=== PATIENT | female | born 1980 | race Caucasian/White ===

== ENCOUNTER 2016-04-22 21:51 | Emergency (ER) | payer OTHER ==
[~2016-04-22] VITALS: Ht 149.9 cm; Wt 81.6 kg
[2016-04-22 21:53] VITALS: BP_SYST 146
[2016-04-22] MEDS ORDERED: MAG-AL HYDROX/SIMETH 30 ML UDC PO ONE (22:45)
[2016-04-22] MEDS ORDERED: LIDOCAINE VISCOUS 2%, 15 ML UDC MM ONE (22:45)
[2016-04-22] MEDS ORDERED: ONDANSETRON HCL 4 MG/2 ML VIAL IVP ONE (22:45)
[2016-04-22] MEDS ORDERED: BELLADONNA ALKALOIDS/PHENOBARB 5 ML UDC PO ONE (22:45)
[2016-04-22] MEDS ORDERED: NACL 0.9% 1,000 ML IV ONE (22:45)
[2016-04-22] MEDS ORDERED: LORazepam 2 MG/ML VIAL (FOR ER USE) IVP ONE ×2 (23:00→23:30)
[2016-04-22 23:08] LABS: CALCIUM 8.2 mg/dL (8.4-11.0); CREATININE 0.77 mg/dL (0.55-1.30); POTASSIUM 3.3 mmol/L (3.5-5.1)
[2016-04-22 23:11] LABS: BASOPHILS % (AUTO) 0.4 % (0.0-2.0); EOSINOPHILS # (AUTO) 0.3 K/uL (0.0-0.4); EOSINOPHILS % (AUTO) 3.5 % (0.0-4.0); HEMATOCRIT 33.5 % (36-48); HEMOGLOBIN 11.2 g/dL (12.0-16.0); LYMPHOCYTES # (AUTO) 4.1 K/uL (1.0-5.5); LYMPHOCYTES % (AUTO) 48.9 % (20.5-51.5); MEAN CORPUSCULAR HEMOGLOBIN 27 pg (27-31); MEAN CORPUSCULAR HGB CONC 33 % (32-36); MEAN CORPUSCULAR VOLUME 81 fL (79.0-98.0); MONOCYTES # (AUTO) 0.7 K/uL (0.0-1.0); MONOCYTES % (AUTO) 7.9 % (1.7-9.3); NEUTROPHILS # (AUTO) 3.4 K/uL (1.8-7.7); NEUTROPHILS % (AUTO) 39.3 % (40.0-70.0); PLATELET COUNT (AUTO) 306 K/uL (130-430); RED BLOOD CELL COUNT(AUTO) 4.13 MIL/uL (4.2-6.2); WHITE BLOOD COUNT (AUTO) 8.5 K/uL (4.8-10.8)
[2016-04-22 23:13] LABS: ALBUMIN 3.5 g/dL (3.4-4.8); TOTAL BILIRUBIN 0.1 mg/dL (0.0-1.0); TOTAL PROTEIN, SERUM 6.9 g/dL (6.4-8.3)
[2016-04-22 23:40] VITALS: BP_SYST 142
== END 2016-04-22 23:40 | disposition home or self-care (01) ==
LOC: SED 21:51
DX: K29.20 Alcoholic gastritis without bleeding (principal); F41.1 Generalized anxiety disorder
CPT/HCPCS: 36415; 80053; 85025; 93005; 96361; 96374; 96375; 99285; J2001; J2405; J7030; J2060

== ENCOUNTER 2017-03-13 08:24 | Emergency (ER) | payer OTHER ==
[~2017-03-13] VITALS: Ht 149.9 cm; Wt 86.2 kg
--- NOTE | 2017-03-13 08:32 | NUR ---
Patient to ER bed 7 to gown for evaluation. Side rails up. Report given to Joy BARBOZA.
[2017-03-13 08:33] VITALS: BP_SYST 138
--- NOTE | 2017-03-13 08:34 | NUR ---
Pt complains of having right flank pain that radiates up her back since yesterday. Pt states she feels nauseous but has not vomited. Pt states she had chill but is not sure if she had a fever. Pt denies burning/pain while urinating. No other injuries/complaints per patient or noted.
--- NOTE | 2017-03-13 08:35 | NUR ---
ER Dr. Alves at bedside examining patient.
[2017-03-13] MEDS ORDERED: NACL 0.9% 1,000 ML IV ONE (08:59)
[2017-03-13] MEDS ORDERED: ACETAMINOPHEN 500 MG TABLET PO ONE (09:00)
[2017-03-13] MEDS ORDERED: KETOROLAC TROMETHAMINE 30 MG VIAL IVP ONE (09:00)
[2017-03-13] MEDS ORDERED: cefTRIAXone 1 GM IVPB PREMIX 50 ML IV ONE (09:00)
[2017-03-13 09:08] LABS: BILIRUBIN,URINE NEGATIVE (NEGATIVE); CLARITY/URINE CLEAR (CLEAR); COLOR,URINE YELLOW (YELLOW); GLUCOSE,URINE NEGATIVE (NEGATIVE); KETONES,URINE NEGATIVE (NEGATIVE); LEUKOCYTE ESTERASE ,URINE NEGATIVE (NEGATIVE); NITRITE, URINE NEGATIVE (NEGATIVE); PH,URINE 5.5 (5.0-8.0); PROTEIN URINE NEGATIVE (NEGATIVE); UROBILINOGEN,URINE 0.2 (0.2-1.0)
--- NOTE | 2017-03-13 09:08 | NUR ---
Pt went to radiology in stable condition.
[2017-03-13 09:12] LABS: BLOOD, URINE TRACE (NEGATIVE)
--- NOTE | 2017-03-13 09:18 | NUR ---
Pt returned from radiology in stable condition.
[2017-03-13 09:22] LABS: BASOPHILS # (AUTO) 0.1 K/uL (0.0-0.2); BASOPHILS % (AUTO) 1.5 % (0.0-2.0); EOSINOPHILS # (AUTO) 0.2 K/uL (0.0-0.4); EOSINOPHILS % (AUTO) 2.9 % (0.0-4.0); HEMATOCRIT 37.8 % (36-48); HEMOGLOBIN 12.2 g/dL (12.0-16.0); LYMPHOCYTES # (AUTO) 2.8 K/uL (1.0-5.5); MEAN CORPUSCULAR HEMOGLOBIN 26 pg (27-31); MEAN CORPUSCULAR HGB CONC 32 % (32-36); MEAN CORPUSCULAR VOLUME 82 fL (79.0-98.0); MONOCYTES # (AUTO) 0.7 K/uL (0.0-1.0); MONOCYTES % (AUTO) 8.4 % (1.7-9.3); NEUTROPHILS % (AUTO) 51.2 % (40.0-70.0); PLATELET COUNT (AUTO) 387 K/uL (130-430); RED BLOOD CELL COUNT(AUTO) 4.63 MIL/uL (4.2-6.2); RED CELL DISTRIBUTION WIDTH 12.6 % (9.0-15.0); WHITE BLOOD COUNT (AUTO) 7.8 K/uL (4.8-10.8)
[2017-03-13 09:28] LABS: CALCIUM 8.9 mg/dL (8.4-11.0); CREATININE 0.48 mg/dL (0.55-1.30); POTASSIUM 3.9 mmol/L (3.5-5.1)
[2017-03-13 09:32] LABS: TOTAL BILIRUBIN 0.1 mg/dL (0.0-1.0)
[2017-03-13 09:36] LABS: BACTERIA,URINE None Seen /HPF (None Seen); WBC,URINE NONE SEEN /HPF (0-3)
[2017-03-13] MEDS ORDERED: LORazepam 2 MG/ML VIAL IVP ONE (09:45)
[2017-03-13] MEDS ORDERED: LORazepam 2 MG/ML VIAL (FOR ER USE) ONE (09:53)
--- NOTE | 2017-03-13 10:30 | NUR ---
Patient given written and verbal discharge instructions and verbalizes understanding. ER MD discussed with patient the results and treatment provided. Patient in stable condition. ID arm band removed. IV catheter removed intact and dressing applied, no active bleeding. Rx of Ativan, Motrin given. Patient educated on pain management and to follow up with PMD. Pain Scale 2/10. Opportunity for questions provided and answered.
== END 2017-03-13 10:30 | disposition home or self-care (01) ==
LOC: SED 08:24
DX: M54.6 Pain in thoracic spine (principal)
CPT/HCPCS: 36415; 71045; 74018; 80053; 81000; 81025; 83690; 85025; 96365; 96375; 99285; J0696; J1885; J2060; J7030

== ENCOUNTER 2018-02-08 13:46 | Emergency (ER) | payer OTHER ==
[~2018-02-08] VITALS: Ht 149.9 cm; Wt 88.5 kg
[2018-02-08 13:56] VITALS: BP_SYST 115
[2018-02-08 14:53] LABS: BILIRUBIN,URINE NEGATIVE (NEGATIVE); BLOOD, URINE NEGATIVE (NEGATIVE); CLARITY/URINE CLEAR (CLEAR); COLOR,URINE YELLOW (YELLOW); GLUCOSE,URINE NEGATIVE (NEGATIVE); KETONES,URINE NEGATIVE (NEGATIVE); LEUKOCYTE ESTERASE ,URINE NEGATIVE (NEGATIVE); NITRITE, URINE NEGATIVE (NEGATIVE); PH,URINE 6.5 (5.0-8.0); PROTEIN URINE NEGATIVE (NEGATIVE); UROBILINOGEN,URINE 0.2 (0.2-1.0)
[2018-02-08] MEDS ORDERED: ACETAMINOPHEN 325 MG TABLET PO ONE (15:30)
[2018-02-08 15:36] VITALS: BP_SYST 135
== END 2018-02-08 15:32 | disposition home or self-care (01) ==
LOC: SED 13:46
DX: S39.012A Strain of muscle, fascia and tendon of lower back, initial encounter (principal); X50.0XXA Overexertion from strenuous movement or load, initial encounter; Y93.89 Activity, other specified; Y92.69 Other specified industrial and construction area as the place of occurrence of the external cause; Y99.8 Other external cause status
CPT/HCPCS: 81003; 81025; 99283

== ENCOUNTER 2018-05-14 12:58 | Emergency (ER) | payer OTHER ==
[~2018-05-14] VITALS: Ht 152.4 cm; Wt 86.2 kg
[2018-05-14 13:04] VITALS: BP_SYST 138
[2018-05-14] MEDS ORDERED: KETOROLAC TROMETHAMINE 60 MG/2 ML VIAL IM ONE (13:30)
[2018-05-14 14:23] LABS: BASOPHILS # (AUTO) 0.1 K/uL (0.0-0.2); BASOPHILS % (AUTO) 0.7 % (0.0-2.0); EOSINOPHILS # (AUTO) 0.2 K/uL (0.0-0.4); EOSINOPHILS % (AUTO) 2.5 % (0.0-4.0); HEMATOCRIT 35.9 % (36-48); HEMOGLOBIN 11.6 g/dL (12.0-16.0); LYMPHOCYTES # (AUTO) 2.9 K/uL (1.0-5.5); LYMPHOCYTES % (AUTO) 35.1 % (20.5-51.5); MEAN CORPUSCULAR HEMOGLOBIN 26 pg (27-31); MEAN CORPUSCULAR HGB CONC 32 % (32-36); MEAN CORPUSCULAR VOLUME 81 fL (79.0-98.0); MONOCYTES # (AUTO) 0.6 K/uL (0.0-1.0); MONOCYTES % (AUTO) 7.2 % (1.7-9.3); NEUTROPHILS # (AUTO) 4.4 K/uL (1.8-7.7); NEUTROPHILS % (AUTO) 54.5 % (40.0-70.0); PLATELET COUNT (AUTO) 314 K/uL (130-430); RED BLOOD CELL COUNT(AUTO) 4.42 MIL/uL (4.2-6.2); RED CELL DISTRIBUTION WIDTH 14.5 % (9.0-15.0); WHITE BLOOD COUNT (AUTO) 8.1 K/uL (4.8-10.8)
[2018-05-14] MEDS ORDERED: ACETAMINOPHEN 500 MG TABLET PO ONE (14:45)
[2018-05-14 15:17] LABS: CALCIUM 8.5 mg/dL (8.4-11.0); CREATININE 0.65 mg/dL (0.55-1.30); POTASSIUM 4.1 mmol/L (3.5-5.1)
[2018-05-14 15:23] LABS: ALBUMIN 3.2 g/dL (3.4-4.8); TOTAL BILIRUBIN 0.2 mg/dL (0.0-1.0)
[2018-05-14 15:50] VITALS: BP_SYST 130
== END 2018-05-14 15:50 | disposition home or self-care (01) ==
LOC: SED 12:58
DX: N83.202 Unspecified ovarian cyst, left side (principal); N80.9 Endometriosis, unspecified; D64.9 Anemia, unspecified; R03.0 Elevated blood-pressure reading, without diagnosis of hypertension; Z98.51 Tubal ligation status
CPT/HCPCS: 36415; 76830-TC; 76857; 80053; 81002; 81025; 83690-TC; 85025; 99284; J1885

== ENCOUNTER 2018-05-29 18:39 | Emergency (ER) | payer OTHER ==
[~2018-05-29] VITALS: Ht 152.4 cm; Wt 77.1 kg
[2018-05-29 19:00] VITALS: BP_SYST 139
[2018-05-29 20:35] LABS: BASOPHILS % (AUTO) 0.4 % (0.0-2.0); EOSINOPHILS # (AUTO) 0.2 K/uL (0.0-0.4); EOSINOPHILS % (AUTO) 2.3 % (0.0-4.0); HEMATOCRIT 36.8 % (36-48); HEMOGLOBIN 12.1 g/dL (12.0-16.0); LYMPHOCYTES % (AUTO) 49.5 % (20.5-51.5); MEAN CORPUSCULAR HEMOGLOBIN 27 pg (27-31); MEAN CORPUSCULAR HGB CONC 33 % (32-36); MEAN CORPUSCULAR VOLUME 81 fL (79.0-98.0); MONOCYTES # (AUTO) 0.7 K/uL (0.0-1.0); MONOCYTES % (AUTO) 8.2 % (1.7-9.3); NEUTROPHILS # (AUTO) 3.2 K/uL (1.8-7.7); NEUTROPHILS % (AUTO) 39.6 % (40.0-70.0); PLATELET COUNT (AUTO) 410 K/uL (130-430); RED BLOOD CELL COUNT(AUTO) 4.54 MIL/uL (4.2-6.2); RED CELL DISTRIBUTION WIDTH 14.8 % (9.0-15.0); WHITE BLOOD COUNT (AUTO) 8.1 K/uL (4.8-10.8)
[2018-05-29 20:37] LABS: CALCIUM 8.7 mg/dL (8.4-11.0); CREATININE 0.61 mg/dL (0.55-1.30); POTASSIUM 3.8 mmol/L (3.5-5.1)
[2018-05-29 20:42] LABS: INR 0.9 (0.8-1.2)
[2018-05-29 20:43] LABS: ALBUMIN 3.6 g/dL (3.4-4.8); TOTAL BILIRUBIN 0.2 mg/dL (0.0-1.0)
[2018-05-29] MEDS ORDERED: LORazepam 2 MG/ML VIAL (FOR ER USE) IVP ONE ×2 (20:45→22:15)
[2018-05-29 20:50] LABS: BILIRUBIN,URINE NEGATIVE (NEGATIVE); BLOOD, URINE 3+ (NEGATIVE); CLARITY/URINE SL CLOUDY (CLEAR); COLOR,URINE YELLOW (YELLOW); GLUCOSE,URINE NEGATIVE (NEGATIVE); KETONES,URINE NEGATIVE (NEGATIVE); LEUKOCYTE ESTERASE ,URINE NEGATIVE (NEGATIVE); NITRITE, URINE NEGATIVE (NEGATIVE); PH,URINE 5.5 (5.0-8.0); PROTEIN URINE TRACE (NEGATIVE); UROBILINOGEN,URINE 0.2 (0.2-1.0)
[2018-05-29 20:55] LABS: BACTERIA,URINE FEW /HPF (None Seen); MUCUS,URINE 3+ /LPF (None Seen); RBC,URINE >100 /HPF (0-3); WBC,URINE 0-3 /HPF (0-3)
[2018-05-29 21:01] LABS: BARBITURATE, URINE NEGATIVE (NEG <=200); BENZODIAZEPINE, URINE NEGATIVE (NEG <=150); CANNABINOID, URINE POSITIVE (NEG <=50); COCAINE, URINE NEGATIVE (NEG <=150); METHAMPHETAMINES SCREEN,URINE NEGATIVE (NEG <=500); OPIATE, URINE NEGATIVE (NEG <=100); PHENCYCLIDINE SCREEN,URINE NEGATIVE (NEG <=25); UR TRICYCLIC ANTIDEPRESSANTS NEGATIVE (NEG <=300); URINE AMPHETAMINE NEGATIVE (NEG <=500); URINE METHADONE NEGATIVE (NEG <=200); URINE OXYCODONE SCREEN NEGATIVE (NEG <=100); URINE PROPOXYPHENE SCREEN NEGATIVE (NEG <=300)
[2018-05-29 22:39] VITALS: BP_SYST 132
== END 2018-05-29 22:39 | disposition home or self-care (01) ==
LOC: SED 18:39
DX: F41.0 Panic disorder [episodic paroxysmal anxiety] (principal); R00.2 Palpitations; R10.9 Unspecified abdominal pain; T50.5X5A Adverse effect of appetite depressants, initial encounter; F17.210 Nicotine dependence, cigarettes, uncomplicated; Y92.89 Other specified places as the place of occurrence of the external cause
CPT/HCPCS: 36415; 71045; 80053; 80307; 81000; 83880; 84484; 85025; 85610; 85730; 93005; 96374; 96376; 99284; G0482; J2060

== ENCOUNTER 2018-07-26 10:22 | Emergency (ER) | payer OTHER ==
[~2018-07-26] VITALS: Ht 152.4 cm; Wt 90.7 kg
[2018-07-26 10:26] VITALS: BP_SYST 119
[2018-07-26 11:30] VITALS: BP_SYST 119
== END 2018-07-26 11:30 | disposition home or self-care (01) ==
LOC: SED 10:22
DX: M54.41 Lumbago with sciatica, right side (principal)
CPT/HCPCS: 81002; 99283

== ENCOUNTER 2019-03-19 11:17 | Emergency (ER) | payer OTHER ==
[~2019-03-19] VITALS: Ht 152.4 cm; Wt 86.2 kg
[2019-03-19 12:36] VITALS: BP_SYST 145
[2019-03-19 13:03] VITALS: BP_SYST 145
== END 2019-03-19 13:03 | disposition home or self-care (01) ==
LOC: SED 11:17
DX: G44.209 Tension-type headache, unspecified, not intractable (principal); F17.290 Nicotine dependence, other tobacco product, uncomplicated; Z71.6 Tobacco abuse counseling
CPT/HCPCS: 99283

== ENCOUNTER 2019-04-06 14:40 | Emergency (ER) | payer OTHER ==
[~2019-04-06] VITALS: Ht 149.9 cm; Wt 86.2 kg
[2019-04-06 14:40] VITALS: BP_SYST 132
--- NOTE | 2019-04-06 14:40 | NUR ---
BROUGHT BACK TO HALLWAY BED, TRIAGED. REPORT GIVEN TO SAI
--- NOTE | 2019-04-06 14:50 | NUR ---
pt arrives from home w/ c/o right eye redness and drainage
--- NOTE | 2019-04-06 15:30 | NUR ---
ER at bedside examining patient.
[2019-04-06 15:40] VITALS: BP_SYST 132
--- NOTE | 2019-04-06 15:40 | NUR ---
Patient given written and verbal discharge instructions and verbalizes understanding. ER MD discussed with patient the results and treatment provided. Patient in stable condition. ID arm band removed. Rx of Augmentin and sulfacetamide given. Patient educated on pain management and to follow up with PMD. Pain Scale 0/10 Opportunity for questions provided and answered. Medication side effect fact sheet provided.
== END 2019-04-06 15:40 | disposition home or self-care (01) ==
LOC: SED 14:40
DX: H10.89 Other conjunctivitis (principal)
CPT/HCPCS: 99283

== ENCOUNTER 2019-04-09 17:49 | Emergency (ER) | payer OTHER ==
[~2019-04-09] VITALS: Ht 149.9 cm; Wt 86.2 kg
[2019-04-09 18:19] VITALS: BP_SYST 129
[2019-04-09] MEDS ORDERED: KETOROLAC TROMETHAMINE 60 MG/2 ML VIAL IM ONE (18:30)
[2019-04-09] MEDS ORDERED: DEXAMETHASONE SOD PHOSPHATE 10 MG/ML VIAL IM ONE (18:30)
--- NOTE | 2019-04-09 18:46 | NUR ---
Patient to ER ch2 for evaluation. Side rails up.
--- NOTE | 2019-04-09 18:55 | NUR ---
Pt AAOx4 ambulated into ED c/o sore throat x 4-5 days with no relief with pain medication. Pain increases upon swallowing. No other injuries/complaints per pt/noted. Will continue to monitor.
[2019-04-09 18:59] LABS: STREPTOCOCCUS A SCREEN (RAPID) NEGATIVE (NEGATIVE)
--- NOTE | 2019-04-09 19:00 | NUR ---
ER NAVI Zapata examining patient.
[2019-04-09 19:09] LABS: INFLUENZA A&B ANTIGEN SCREEN NEGATIVE FOR A & B (NEGATIVE)
--- NOTE | 2019-04-09 19:48 | NUR ---
Patient given written and verbal discharge instructions and verbalizes understanding. ER CHUCKING AND BORING MACHINE OPERATOR Jodi discussed with patient the results and treatment provided. Patient in stable condition. ID arm band removed. Rx of Amoxicillin, motrin, Prednisone given. Patient educated on pain management and to follow up with PMD. Pain Scale 5. Opportunity for questions provided and answered. Medication side effect fact sheet provided.
[2019-04-09 19:49] VITALS: BP_SYST 130
== END 2019-04-09 19:49 | disposition home or self-care (01) ==
LOC: SED 17:49
DX: J02.9 Acute pharyngitis, unspecified (principal); R03.0 Elevated blood-pressure reading, without diagnosis of hypertension
CPT/HCPCS: 81025; 86403; 86710; 87081; 96372; 99284; J1100; J1885; 36415

== ENCOUNTER 2019-04-15 13:46 | Emergency (ER) | payer OTHER ==
[~2019-04-15] VITALS: Ht 149.9 cm; Wt 86.2 kg
[2019-04-15 14:05] VITALS: BP_SYST 150
--- NOTE | 2019-04-15 14:09 | NUR ---
Patient triaged and placed in waiting room. VSS and patient appears in no acute distress at this time. Accompanied by self, awaiting available bed, and MD notified of need for MSE.
--- NOTE | 2019-04-15 14:36 | NUR ---
Patient to ER bed 06 to gown for evaluation. Side rails up.
--- NOTE | 2019-04-15 14:39 | NUR ---
Patient arrived in the ED c/o sore throat that started a week ago. Denied any chest pain or shortness of breath. Denied any fevers, nausea, vomiting, or chills. Patient is alert and oriented x4, respirations even and unlabored, speaking in full sentences, ambulating with a steady gait. VSS, pain level 5/10. Informed of wait time. Instructed to notify ED staff for any changes in condition or worsening of symptoms. Patient verbalized understanding.
--- NOTE | 2019-04-15 14:50 | NUR ---
ER Dr. Terrazas at bedside examining patient.
[2019-04-15 15:33] LABS: BASOPHILS # (AUTO) 0.1 K/uL (0.0-0.2); BASOPHILS % (AUTO) 0.4 % (0.0-2.0); EOSINOPHILS % (AUTO) 0.1 % (0.0-4.0); HEMATOCRIT 40.6 % (36-48); HEMOGLOBIN 13.2 g/dL (12.0-16.0); LYMPHOCYTES # (AUTO) 2.3 K/uL (1.0-5.5); LYMPHOCYTES % (AUTO) 14.7 % (20.5-51.5); MEAN CORPUSCULAR HEMOGLOBIN 27 pg (27-31); MEAN CORPUSCULAR HGB CONC 33 % (32-36); MEAN CORPUSCULAR VOLUME 82 fL (79.0-98.0); MONOCYTES % (AUTO) 6.4 % (1.7-9.3); NEUTROPHILS # (AUTO) 12.2 K/uL (1.8-7.7); NEUTROPHILS % (AUTO) 78.4 % (40.0-70.0); PLATELET COUNT (AUTO) 446 K/uL (130-430); RED BLOOD CELL COUNT(AUTO) 4.93 MIL/uL (4.2-6.2); WHITE BLOOD COUNT (AUTO) 15.6 K/uL (4.8-10.8)
[2019-04-15 15:39] LABS: CREATININE 0.84 mg/dL (0.55-1.30); POTASSIUM 4.1 mmol/L (3.5-5.1)
[2019-04-15 15:44] LABS: ALBUMIN 3.9 g/dL (3.4-4.8); C-REACTIVE PROTEIN QUANT 0.7 mg/dL (0-0.5); TOTAL BILIRUBIN 0.3 mg/dL (0.0-1.0)
[2019-04-15 16:10] VITALS: BP_SYST 150
--- NOTE | 2019-04-15 16:10 | NUR ---
Patient given written and verbal discharge instructions and verbalizes understanding. ER MD discussed with patient the results and treatment provided. Patient in stable condition. ID arm band removed. Rx of Clindamycin given. Patient educated on pain management and to follow up with PMD. Pain Scale 0/10. Opportunity for questions provided and answered. Medication side effect fact sheet provided.
== END 2019-04-15 16:10 | disposition home or self-care (01) ==
LOC: SED 13:46
DX: J02.9 Acute pharyngitis, unspecified (principal)
CPT/HCPCS: 36415; 70360-TC; 71045; 80053; 85025; 86140; 99284

== ENCOUNTER 2020-08-15 11:46 | Emergency (ER) | payer OTHER ==
[~2020-08-15] VITALS: Ht 152.4 cm; Wt 81.6 kg
--- NOTE | 2020-08-15 11:50 | NUR ---
Placed in room 3 . Placed on strike operations officer, blood pressure machine and pulse oximeter. To gown for exam. Side rails up. Report given to Parmjit RN and JABARI Paulino.
--- NOTE | 2020-08-15 11:52 | NUR ---
Patient to ER bed 3 to gown for evaluation. Side rails up.
--- NOTE | 2020-08-15 11:53 | NUR ---
Pt came into ER with complaint of feeling dizzy and light headed. Pt denies syncopal episode, denies pain. Pt reports feeling nauseas and a spinning sensation. Pt BP elevated 163/112. Pt resting in gurney AAOX4.
--- NOTE | 2020-08-15 11:54 | NUR ---
ER at bedside examining patient.
[2020-08-15 11:55] VITALS: BP_SYST 163
[2020-08-15] MEDS ORDERED: MECLIZINE HCL 25 MG TABLET (ANITVERT) PO ONE (12:00)
[2020-08-15] MEDS ORDERED: METOCLOPRAMIDE HCL 10 MG/2 ML VIAL IVP ONE (12:00)
--- NOTE | 2020-08-15 12:18 | NUR ---
Blood and urine collected and sent to lab.
--- NOTE | 2020-08-15 12:18 | NUR ---
# 20 gauge angiocath placed to LAC. Use of asceptic technique. Opsite placed over site. Blood return noted. Blood for lab drawn from site. Flushed with 10 cc of normal saline. No evidence of infiltration noted. Patient tolerated well.
[2020-08-15 12:21] LABS: BASOPHILS # (AUTO) 0.1 K/uL (0.0-0.2); BASOPHILS % (AUTO) 0.6 % (0.0-2.0); EOSINOPHILS # (AUTO) 0.1 K/uL (0.0-0.4); EOSINOPHILS % (AUTO) 1.6 % (0.0-4.0); HEMATOCRIT 40.4 % (36-48); HEMOGLOBIN 12.9 g/dL (12.0-16.0); LYMPHOCYTES # (AUTO) 3.1 K/uL (1.0-5.5); LYMPHOCYTES % (AUTO) 34.7 % (20.5-51.5); MEAN CORPUSCULAR HEMOGLOBIN 26 pg (27-31); MEAN CORPUSCULAR HGB CONC 32 % (32-36); MEAN CORPUSCULAR VOLUME 81 fL (79.0-98.0); MONOCYTES # (AUTO) 0.6 K/uL (0.0-1.0); NEUTROPHILS # (AUTO) 5.1 K/uL (1.8-7.7); NEUTROPHILS % (AUTO) 56.1 % (40.0-70.0); PLATELET COUNT (AUTO) 351 K/uL (130-430); RED BLOOD CELL COUNT(AUTO) 4.96 MIL/uL (4.2-6.2); RED CELL DISTRIBUTION WIDTH 14.1 % (9.0-15.0); WHITE BLOOD COUNT (AUTO) 9.1 K/uL (4.8-10.8)
[2020-08-15 12:36] LABS: CALCIUM 8.7 mg/dL (8.4-11.0); CREATININE 0.68 mg/dL (0.55-1.30); POTASSIUM 3.7 mmol/L (3.5-5.1)
[2020-08-15 12:41] LABS: PROTHROMBIN TIME 9.8 SECS (9.5-12.5)
[2020-08-15 12:42] LABS: ALBUMIN 3.8 g/dL (3.4-4.8); TOTAL BILIRUBIN 0.4 mg/dL (0.0-1.0)
--- NOTE | 2020-08-15 12:53 | NUR ---
X-ray at bedside.
--- NOTE | 2020-08-15 13:05 | NUR ---
TRANSPORTED TO CT VIA WHEELCHAIR
--- NOTE | 2020-08-15 13:10 | NUR ---
Pt back from CT reattached to monitor.
[2020-08-15] MEDS ORDERED: MECL-225 PO (13:31)
[2020-08-15] MEDS ORDERED: CAT1PAT TD (13:31)
[2020-08-15 13:36] VITALS: BP_SYST 125
--- NOTE | 2020-08-15 13:38 | NUR ---
Patient given written and verbal discharge instructions and verbalizes understanding. ER MD discussed with patient the results and treatment provided. Patient in stable condition. ID arm band removed. IV catheter removed intact and dressing applied, no active bleeding. Rx of CLONIDINE given. Patient educated on pain management and to follow up with PMD. Pain Scale 0/10 Opportunity for questions provided and answered. Medication side effect fact sheet provided.
== END 2020-08-15 13:36 | disposition home or self-care (01) ==
LOC: SED 11:46
DX: R42 Dizziness and giddiness (principal); R51.9 Headache, unspecified
CPT/HCPCS: 36415; 70450; 71045; 76376; 80053; 81025; 84484; 85025; 85610; 85730; 93005; 96374; 99285; J2765; J8597

== ENCOUNTER 2021-04-01 09:57 | Emergency (ER) | payer OTHER ==
[~2021-04-01] VITALS: Ht 152.4 cm; Wt 88.5 kg
[~2021-04-01 09:57] MED LIST: CAT1PAT TD; MECL-225 PO
[2021-04-01 10:00] VITALS: BP_SYST 138
--- NOTE | 2021-04-01 10:00 | NUR ---
PT TRAMAYI AND PLACED IN WAITING ROOM FOR AVAILABLE BED IN MAIN ED
--- NOTE | 2021-04-01 10:30 | NUR ---
PT CALLED TO COME BACK INTO MAIN ED, NO ANSWER. CHECKED OUTSIDE, PT IS NOT THERE.
--- NOTE | 2021-04-01 11:00 | NUR ---
PT WALKED INSIDE TO ADMITTING AND STATED SHE WAS STILL HERE AND IF ANYONE CALLED FOR HER. MD MADE AWARE. PT PLACED IN WAITING ROOM.
--- NOTE | 2021-04-01 11:28 | NUR ---
Patient to ER bed H1 to gown for evaluation. Side rails up.
--- NOTE | 2021-04-01 11:28 | NUR ---
Pt brought by self, A&Ox4, pt presents to ER with numbness on L foot and L neck pain x 3 days, pt skin pink and warm, cap refill <3, VSS, respirations even and unlabored.
--- NOTE | 2021-04-01 11:30 | NUR ---
Dr Lowe evaluating patient at bedside
[2021-04-01 12:29] LABS: CALCIUM 8.3 mg/dL (8.4-11.0); CREATININE 0.55 mg/dL (0.55-1.30); POTASSIUM 3.6 mmol/L (3.5-5.1)
[2021-04-01 12:33] LABS: ALBUMIN 3.6 g/dL (3.4-4.8); TOTAL BILIRUBIN 0.4 mg/dL (0.0-1.0)
[2021-04-01] MEDS ORDERED: IBUP-1969 PO (13:29)
[2021-04-01 13:44] VITALS: BP_SYST 138
--- NOTE | 2021-04-01 13:45 | NUR ---
Patient given written and verbal discharge instructions and verbalizes understanding. ER MD discussed with patient the results and treatment provided. Patient in stable condition. ID arm band removed. Rx of Ibuprofen given. Patient educated on pain management and to follow up with PMD. Pain Scale 2/10. Opportunity for questions provided and answered. Medication side effect fact sheet provided.
== END 2021-04-01 13:45 | disposition home or self-care (01) ==
LOC: SED 09:57
DX: R51.9 Headache, unspecified (principal); R20.2 Paresthesia of skin; Z79.899 Other long term (current) drug therapy
CPT/HCPCS: 36415; 70450-TC; 76376; 80053; 81025; 99284

== ENCOUNTER 2021-04-10 10:57 | Emergency (ER) | payer OTHER, SELFPAY ==
[~2021-04-10] VITALS: Ht 160 cm; Wt 83.9 kg
[~2021-04-10 10:57] MED LIST changes: +IBUP-1969 PO
[2021-04-10 11:15] VITALS: BP_SYST 153
[2021-04-10] MEDS ORDERED: IPRATROPIUM/ALBUTEROL SULFATE 3 ML AMPUL.NEB (DUONEB) INH ONE (11:45)
[2021-04-10] MEDS ORDERED: ZIT250 PO (13:09)
[2021-04-10] MEDS ORDERED: ALBMDI INH (13:10)
[2021-04-10] MEDS ORDERED: PRED20TA PO (13:10)
== END 2021-04-10 14:12 | disposition home or self-care (01) ==
LOC: SED 10:57
DX: J40 Bronchitis, not specified as acute or chronic (principal); F17.200 Nicotine dependence, unspecified, uncomplicated; Z79.1 Long term (current) use of non-steroidal anti-inflammatories (NSAID); Z79.899 Other long term (current) drug therapy; Z20.822 Contact with and (suspected) exposure to COVID-19
CPT/HCPCS: 36415; 71045; 94640; 99284

== ENCOUNTER 2021-05-31 10:08 | Emergency (ER) | payer OTHER ==
[~2021-05-31] VITALS: Ht 152.4 cm; Wt 88.5 kg
[~2021-05-31 10:08] MED LIST changes: +ALBMDI INH; +PRED20TA PO; +ZIT250 PO
[2021-05-31 10:24] VITALS: BP_SYST 156
--- NOTE | 2021-05-31 10:24 | NUR ---
Patient to ER bed 5 for evaluation. Side rails up. Report given to Marti BARBOZA.
[2021-05-31] MEDS ORDERED: NACL 0.9% 1,000 ML IV ONE (10:30)
[2021-05-31] MEDS ORDERED: LORazepam 2 MG/ML VIAL IVP ONE (10:30)
[2021-05-31] MEDS ORDERED: ONDANSETRON HCL 4 MG/2 ML VIAL IVP ONE (10:30)
--- NOTE | 2021-05-31 10:35 | NUR ---
ER at bedside examining patient.
--- NOTE | 2021-05-31 10:40 | NUR ---
Pt to bed #5 BIBA coming from home. Pt c/o n/v that started this morning. Pt has no pain. Denies chest pain and no sob. VSS. Pt is A&Ox4. Pt states she has been drinking for the last 2 days. Bed in lowest position. No known allergies and no known medical conditions.
--- NOTE | 2021-05-31 10:53 | NUR ---
# 20 gauge angiocath placed to Right AC. Use of asceptic technique. Opsite placed over site. Blood return noted. Flushed with 10 cc of normal saline. No evidence of infiltration noted. Patient tolerated well.
[2021-05-31 10:58] LABS: BASOPHILS % (AUTO) 0.5 % (0.0-2.0); EOSINOPHILS # (AUTO) 0.1 K/uL (0.0-0.4); EOSINOPHILS % (AUTO) 1.8 % (0.0-4.0); HEMATOCRIT 38.7 % (36-48); HEMOGLOBIN 12.7 g/dL (12.0-16.0); LYMPHOCYTES # (AUTO) 3.2 K/uL (1.0-5.5); LYMPHOCYTES % (AUTO) 50.5 % (20.5-51.5); MEAN CORPUSCULAR HEMOGLOBIN 26 pg (27-31); MEAN CORPUSCULAR HGB CONC 33 % (32-36); MEAN CORPUSCULAR VOLUME 80 fL (79.0-98.0); MONOCYTES # (AUTO) 0.5 K/uL (0.0-1.0); MONOCYTES % (AUTO) 7.2 % (1.7-9.3); NEUTROPHILS # (AUTO) 2.6 K/uL (1.8-7.7); PLATELET COUNT (AUTO) 330 K/uL (130-430); RED BLOOD CELL COUNT(AUTO) 4.82 MIL/uL (4.2-6.2); WHITE BLOOD COUNT (AUTO) 6.4 K/uL (4.8-10.8)
[2021-05-31 11:17] LABS: CALCIUM 7.4 mg/dL (8.4-11.0); CREATININE 0.65 mg/dL (0.55-1.30)
[2021-05-31 11:23] LABS: ALBUMIN 3.8 g/dL (3.4-4.8); TOTAL BILIRUBIN 0.3 mg/dL (0.0-1.0)
[2021-05-31] MEDS ORDERED: LORA-259 PO (11:48)
[2021-05-31] MEDS ORDERED: ONDA-8 TL (11:48)
[2021-05-31 12:10] VITALS: BP_SYST 134
--- NOTE | 2021-05-31 12:11 | NUR ---
dPatient given written and verbal discharge instructions and verbalizes understanding. ER MD discussed with patient the results and treatment provided. Patient in stable condition. ID arm band removed. IV catheter removed intact and dressing applied, no active bleeding. Rx of Zofran and Ativan given. Patient educated on pain management and to follow up with PMD. Pain Scale . Opportunity for questions provided and answered. Medication side effect fact sheet provided.
== END 2021-05-31 12:10 | disposition home or self-care (01) ==
LOC: SED 10:08
DX: K29.20 Alcoholic gastritis without bleeding (principal); R11.10 Vomiting, unspecified
CPT/HCPCS: 36415; 80053; 83690; 85025; 96361; 96374; 96375; 99284; G0482; J2060; J2405; J7030

== ENCOUNTER 2021-11-04 02:02 | Emergency (ER) | payer OTHER ==
[~2021-11-04] VITALS: Ht 152.4 cm; Wt 86.2 kg
[2021-11-04 02:02] VITALS: BP_SYST 138
[~2021-11-04 02:02] MED LIST changes: +LORA-259 PO; +ONDA-8 TL
--- NOTE | 2021-11-04 02:02 | NUR ---
PATIENT AMBULATORY TO BED 2 FOR EVALUATION AND TREATMENT.
--- NOTE | 2021-11-04 02:25 | NUR ---
LUCY Cuellar at bedside.
[2021-11-04] MEDS ORDERED: ONDANSETRON HCL 4 MG/2 ML VIAL IVP ONE (02:30)
[2021-11-04] MEDS ORDERED: NACL 0.9% 1,000 ML IV ONE (02:30)
[2021-11-04] MEDS ORDERED: LORazepam 2 MG/ML VIAL IVP ONE (02:30)
--- NOTE | 2021-11-04 02:30 | NUR ---
Patient presents to ED from home c/o palpitations and anxiety x1 hour ago. Patient denies pain; reports 0/10 at this time. Patient reports she has been drinking on and off all day yesterday. Patient A/Ox4, VSS, ambulatory, resp even and unlabored. Nad noted at this time.
--- NOTE | 2021-11-04 02:40 | NUR ---
Radiology at bedside.
[2021-11-04] MEDS ORDERED: ONDANSETRON 4 MG ODT TAB PO ONE (02:45)
[2021-11-04] MEDS ORDERED: LORazepam 1 MG TABLET PO ONE ×2 (02:45→03:00)
--- NOTE | 2021-11-04 03:00 | NUR ---
Patient resting comfortably in bed with side rails raised. Nad noted at this time.
[2021-11-04 03:54] VITALS: BP_SYST 138
--- NOTE | 2021-11-04 03:54 | NUR ---
Patient given written and verbal discharge instructions and verbalizes understanding. ER MD discussed with patient the results and treatment provided. Patient in stable condition. ID arm band removed. Patient educated on pain management and to follow up with PMD. Pain Scale 0/10. Opportunity for questions provided and answered. Patient A/Ox4, VSS, ambulatory, resp even and unlabored. Nad noted at this time. Patient in stable conditon upon discharge.
== END 2021-11-04 03:54 | disposition home or self-care (01) ==
LOC: SED 02:02
DX: R00.2 Palpitations (principal); Z79.899 Other long term (current) drug therapy
CPT/HCPCS: 99283; 71045; 93005; Q0162

== ENCOUNTER 2021-11-22 18:22 | Emergency (ER) | payer OTHER ==
[~2021-11-22] VITALS: Ht 152.4 cm; Wt 86.2 kg
[2021-11-22 18:38] VITALS: BP_SYST 152
--- NOTE | 2021-11-22 18:50 | NUR ---
MD with patient in triage.
[2021-11-22 20:00] LABS: BASOPHILS # (AUTO) 0.1 K/uL (0.0-0.2); BASOPHILS % (AUTO) 0.6 % (0.0-2.0); EOSINOPHILS # (AUTO) 0.1 K/uL (0.0-0.4); EOSINOPHILS % (AUTO) 1.2 % (0.0-4.0); HEMATOCRIT 36.2 % (36-48); HEMOGLOBIN 12.1 g/dL (12.0-16.0); LYMPHOCYTES # (AUTO) 2.8 K/uL (1.0-5.5); LYMPHOCYTES % (AUTO) 33.9 % (20.5-51.5); MEAN CORPUSCULAR HEMOGLOBIN 26 pg (27-31); MEAN CORPUSCULAR HGB CONC 33 % (32-36); MEAN CORPUSCULAR VOLUME 79 fL (79.0-98.0); MONOCYTES # (AUTO) 0.5 K/uL (0.0-1.0); MONOCYTES % (AUTO) 6.3 % (1.7-9.3); NEUTROPHILS # (AUTO) 4.8 K/uL (1.8-7.7); PLATELET COUNT (AUTO) 298 K/uL (130-430); RED BLOOD CELL COUNT(AUTO) 4.58 MIL/uL (4.2-6.2); RED CELL DISTRIBUTION WIDTH 14.7 % (9.0-15.0); WHITE BLOOD COUNT (AUTO) 8.2 K/uL (4.8-10.8)
--- NOTE | 2021-11-22 20:00 | NUR ---
Pt report lower abd pain with diarrhea that started today. Pt describes the pain as a "buring feeling" and rates it 10/10. Pt reports having diarrhea and blood in the stool.
[2021-11-22 20:44] LABS: BILIRUBIN,URINE NEGATIVE (NEGATIVE); CLARITY/URINE CLEAR (CLEAR); COLOR,URINE YELLOW (YELLOW); GLUCOSE,URINE NEGATIVE (NEGATIVE); KETONES,URINE NEGATIVE (NEGATIVE); LEUKOCYTE ESTERASE ,URINE NEGATIVE (NEGATIVE); NITRITE, URINE NEGATIVE (NEGATIVE); PROTEIN URINE NEGATIVE (NEGATIVE); UROBILINOGEN,URINE 0.2 (0.2-1.0)
[2021-11-22 20:45] LABS: BLOOD, URINE TRACE (NEGATIVE)
[2021-11-22 20:51] LABS: CALCIUM 8.6 mg/dL (8.4-11.0); CREATININE 0.81 mg/dL (0.55-1.30)
[2021-11-22 20:55] LABS: RBC,URINE 0-3 /HPF (0-3); WBC,URINE NONE SEEN /HPF (0-3)
[2021-11-22 20:55] LABS: ALBUMIN 3.6 g/dL (3.4-4.8); TOTAL BILIRUBIN 0.3 mg/dL (0.0-1.0)
[2021-11-22 20:56] LABS: BACTERIA,URINE None Seen /HPF (None Seen); MUCUS,URINE None Seen /LPF (None Seen)
--- NOTE | 2021-11-22 21:57 | NUR ---
Patient given written and verbal discharge instructions by Dr Cazares and verbalizes understanding. ER MD discussed with patient the results and treatment provided. Patient in stable condition. ID arm band removed by Dr Cazares. Opportunity for questions provided and answered.
--- NOTE | 2021-11-22 21:57 | NUR ---
Note [place]te in EDM - 11/22/21 at 2248 by [email or web address] Patient given written and verbal discharge instructions by Dr Cazares and verbalizes understanding. LUCY KNIGHT discussed with patient the results and treatment provided. Patient in stable condition. ID arm band removed by Dr Cazares. Rx of Naprosyn given by Dr Cazares. Opportunity for questions provided and answered.
== END 2021-11-22 21:57 | disposition home or self-care (01) ==
LOC: SED 18:22
DX: K60.2 Anal fissure, unspecified (principal); R10.9 Unspecified abdominal pain; K62.5 Hemorrhage of anus and rectum; R19.7 Diarrhea, unspecified; I10 Essential (primary) hypertension; Z79.899 Other long term (current) drug therapy
CPT/HCPCS: 36415; 76376; 80053; 81000; 81025; 85025; 99284

== ENCOUNTER 2022-02-16 09:01 | Emergency (ER) | payer OTHER ==
[~2022-02-16] VITALS: Ht 152.4 cm; Wt 90.7 kg
[2022-02-16 09:05] VITALS: BP_SYST 139
--- NOTE | 2022-02-16 09:05 | NUR ---
BROUGHT BACK TO BED #6 AND TRIAGED. REPORT GIVEN TO AMBROCIO
--- NOTE | 2022-02-16 09:12 | NUR ---
ER Dr.Dela Roper at bedside examining patient.
[2022-02-16] MEDS: LIDOCAINE/EPI 1% 1:100000 20 ML VIAL INJ ONE (09:30)
[2022-02-16] MEDS ORDERED: BACEYEO OP (10:14)
[2022-02-16] MEDS ORDERED: IBUP-1969 PO (10:14)
[2022-02-16] MEDS ORDERED: CLIN-142 PO (10:14)
--- NOTE | 2022-02-16 10:30 | NUR ---
PATIENT I&D BY EDP TOLERATED WELL AND D/C HOME WITH INSTRUCTION.
--- NOTE | 2022-02-16 11:08 | NUR ---
Patient given written and verbal discharge instructions and verbalizes understanding. ER MD discussed with patient the results and treatment provided. Patient in stable condition. ID arm band removed. IV catheter removed intact and dressing applied, no active bleeding. Rx of BACTRIM/CLINDAMYCIN/IBUPROFEN given. Patient educated on pain management and to follow up with PMD. Pain Scale 0. Opportunity for questions provided and answered. Medication side effect fact sheet provided.
== END 2022-02-16 11:08 | disposition home or self-care (01) ==
LOC: SED 09:01
DX: L02.212 Cutaneous abscess of back [any part, except buttock and flank] (principal); R22.2 Localized swelling, mass and lump, trunk; I10 Essential (primary) hypertension; Z79.899 Other long term (current) drug therapy
CPT/HCPCS: 99282; 99283

== ENCOUNTER 2022-08-05 11:11 | Emergency (ER) | payer OTHER ==
[~2022-08-05] VITALS: Ht 157.5 cm; Wt 90.7 kg
[~2022-08-05 11:11] MED LIST changes: +BACEYEO OP; +CLIN-142 PO
[2022-08-05 11:24] VITALS: BP_SYST 153
[2022-08-05] MEDS ORDERED: LORazepam 1 MG TABLET PO ONE (12:30)
[2022-08-05] MEDS ORDERED: VIS25 PO (12:38)
[2022-08-05 12:43] VITALS: BP_SYST 153
== END 2022-08-05 12:45 | disposition home or self-care (01) ==
LOC: SED 11:11
DX: F41.9 Anxiety disorder, unspecified (principal); R53.1 Weakness; R11.0 Nausea; I10 Essential (primary) hypertension; Z79.899 Other long term (current) drug therapy
CPT/HCPCS: 99283